=== PATIENT | female | born 1965 | race Caucasian/White ===

== ENCOUNTER 2020-09-29 22:31 | Emergency (ER) | payer OTHER ==
[2020-09-29] MEDS ORDERED: PRILOSEC OTC20 MG PO (22:49)
[2020-09-30] MEDS ORDERED: AMOXICILLIN AND1 TA2 PO (00:06)
[2020-09-30 01:22] LABS: EOS # 0.2 (0.04-0.40); EOS % 2.3 % (1.0-5.0); HEMATOCRIT 40.9 % (37.0-47.0); HEMOGLOBIN 13.5 g/dL (12.5-16.0); LYMPH# 2.2 (1.50-4.00); MEAN CELL VOLUME 90 fl (78-100); MEAN CORPUSCULAR HEMOGLOBIN 30 pg (27-31); MEAN CORPUSCULAR HGB CONC 33 g/dL (33-37); MEAN PLATELET VOLUME 10.4 fl (7.4-10.4); MONO # 0.6 (0.20-0.80); NEU # 5.6 (1.40-6.50); PLATELET COUNT 247 K/mm3 (130-400); RED BLOOD COUNT 4.53 M/mm3 (4.10-5.30); RED CELL DISTRIBUTION WIDTH 13.8 % (11.5-14.5); WHITE BLOOD COUNT 8.7 K/mm3 (4.8-10.8)
[2020-09-30 01:23] LABS: CALCIUM 9.7 mg/dL (8.3-10.5); POTASSIUM 3.6 mmol/L (3.5-5.1)
[2020-09-30 01:24] LABS: TOTAL PROTEIN 6.8 g/dL (6.4-8.3)
[2020-09-30 01:25] LABS: TOTAL BILIRUBIN 0.4 mg/dL (0.2-1.2)
[2020-09-30] MEDS ORDERED: HYDROCHLOROTHIA1 T15 PO (01:46)
[2020-09-30 01:56] VITALS: BP 171/97
== END 2020-09-30 01:56 | disposition home or self-care (01) ==
LOC: ED 22:31
PROVIDERS: Family Medicine
DX: S61.254A Open bite of right ring finger without damage to nail, initial encounter (principal); I10 Essential (primary) hypertension; F17.290 Nicotine dependence, other tobacco product, uncomplicated; W55.01XA Bitten by cat, initial encounter; Y92.009 Unspecified place in unspecified non-institutional (private) residence as the place of occurrence of the external cause
CPT/HCPCS: 90715